=== PATIENT | male | born 1970 | race Caucasian/White ===

== ENCOUNTER 2017-01-12 10:29 | Inpatient (IN) | payer OTHER, SELFPAY ==
[2017-01-12] MEDS ORDERED: Lorazepam 2 MG/ML VIAL ONE ×3 (11:54→15:28)
[2017-01-12] MEDS ORDERED: Ketorolac Tromethamine 30 MG/ML VIAL ONE (11:54)
[2017-01-12 12:00] LABS: ALT (SGPT) 199 U/L (8-55); AST (SGOT) 299 U/L (5-34); Acetaminophen Less than 6.0 mcg/mL (10.0-30.0); Alkaline Phosphatase 77 U/L (40-150); Anion Gap 17 mmol/L (10-20); BUN (Urea Nitrogen) Less than 4 mg/dL (8.9-20.6); CK (CPK) 82 U/L (30-200); Calc. Creatinine Clearance 0 mL/min (70-130); Calcium 9.2 mg/dL (7.8-10.44); Carbon Dioxide 27 mmol/L (22-29); Chloride 97 mmol/L (98-107); Estimated GFR-MDRD Greater than 90; Protein, Total 7.5 g/dL (6.0-8.3); Salicylate Less than 8.0 mg/dL (15.0-30.0)
[2017-01-12] MEDS ORDERED: Multivitamins, Adult 10 ML, Thiamine HCl 100 MG, Folic Acid 1 MG in Dextrose 5 %-0.45 %... IV SCH ×4 (12:00)
[2017-01-12 12:10] LABS: #Basophils 0.1 thou/uL (0.0-0.2); #Lymphocytes 0.7 thou/uL (1.20-3.40); #Monocytes 0.3 thou/uL (0.11-0.59); #Neutrophils 1.7 thou/uL (1.40-6.50); %Basophils 2.8 % (0.0-1.0); %Eosinophils 1.4 % (0.0-10.0); %Lymphocytes 25.5 % (21.0-51.0); Band 2 % (5-11); Hematocrit 45.9 % (42.0-52.0); Macrocytosis SLIGHT = 6-15 cells (100X) (0-5/hpf); Mean Platelet Volume 8.1 fL (7.4-10.4); Neutrophil 58 % (42-75); Reactive Lymphocytes 6 % (0-10); Red Blood Cell (RBC) Count 4.47 mill/uL (4.70-6.10); White Blood Cell (WBC) Count 2.9 thou/uL (4.8-10.8)
[2017-01-12 15:35] LABS: PTT 25.8 SEC (22.9-36.1); Prothrombin Time 11.9 SEC (12.0-14.7)
[2017-01-12] MEDS ORDERED: Ondansetron ODT 4 MG TAB PO PRN (16:15)
[2017-01-12] MEDS ORDERED: Lorazepam 2 MG/ML VIAL SLOW IVP PRN (16:34)
[2017-01-12] MEDS ORDERED: Diazepam 5 MG TAB PO PRN (16:44)
[2017-01-12] MEDS ORDERED: Ibuprofen 800 MG TAB PO PRN (16:45)
[2017-01-12] MEDS ORDERED: Thiamine HCl 200 MG/2 ML VIAL IM SCH (16:45)
[2017-01-12] MEDS ORDERED: Diazepam 5 MG TAB PO SCH ×2 (16:45)
[2017-01-12] MEDS ORDERED: Magnesium Oxide 400 MG TAB PO SCH (17:00)
[2017-01-12 17:20] LABS: Magnesium 1.9 mg/dL (1.6-2.6); Phosphorus 2.2 mg/dL (2.3-4.7)
[2017-01-12] MEDS ORDERED: Lorazepam 2 MG/ML VIAL SLOW IVP SCH (18:45)
[2017-01-12 19:34] LABS: Amphetamine Not Detected (NotDetected); Methadone Not Detected (NotDetected); Methamphetamine Not Detected (NotDetected)
--- NOTE | 2017-01-12 19:38 | ULT ---
RIGHT UPPER QUADRANT ULTRASOUND: 01/12/2017 HISTORY: Elevated transaminases. FINDINGS: The liver demonstrates increased echogenicity suggesting diffuse fatty infiltration. The liver is en larged in craniocaudal dimensions measuring 19 cm. The majority of the pancreas is obscured by bowel gas. Limited visualized portions of the head of th e pancreas has a grossly normal sonographic appearance. The visualized portions of the IVC, gallbladder, and right kidney demonstrate a normal sonographic ap pearance. The right kidney measures 12.3 cm in length. The common duct measures 0.5 cm in diameter which is within normal limits. IMPRESSION: 1. Hepatomegaly with diffuse fatty infiltration of the liver. 2. No gallbladder calculi are seen, and the common duct is normal in caliber. POS: JOSE
[2017-01-12] MEDS ORDERED: FLU VACC QS2017-18 36 mo. & older 0.5 ML SYRINGE IM ONE (21:00)
[2017-01-12] MEDS: Famotidine 20 MG TAB PO SCH (21:05)
[2017-01-12] MEDS: Sodium Chloride 0.9% 1,000 ML IV SCH (23:11)
[2017-01-13] MEDS: Diazepam 5 MG TAB PO PRN ×2 (02:34→06:35)
[2017-01-13] MEDS: Lorazepam 2 MG/ML VIAL SLOW IVP PRN ×4 (05:05→20:17)
[2017-01-13 05:41] LABS: #Basophils 0.1 thou/uL (0.0-0.2); #Lymphocytes 0.5 thou/uL (1.20-3.40); #Monocytes 0.3 thou/uL (0.11-0.59); #Neutrophils 3.4 thou/uL (1.40-6.50); %Basophils 1.6 % (0.0-1.0); %Eosinophils 0.6 % (0.0-10.0); %Lymphocytes 11.6 % (21.0-51.0); %Monocytes 7.1 % (0.0-10.0); Hematocrit 40.3 % (42.0-52.0); Mean Platelet Volume 8.1 fL (7.4-10.4); Red Blood Cell (RBC) Count 3.93 mill/uL (4.70-6.10); White Blood Cell (WBC) Count 4.2 thou/uL (4.8-10.8)
--- NOTE | 2017-01-13 06:00 | HP-2 ---
CODE STATUS: FULL. PRIMARY CARE PHYSICIAN: Trena moctezuma. ATTENDING: Polina Montgomery M.D. RESIDENT: Luna Godfrey D.O. HISTORIAN: Patient. CHIEF COMPLAINT: Alcohol withdrawal shakes. HISTORY OF PRESENT ILLNESS: A 46-year-old male with past medical history of alcoholism presents to [facility] ED seeking help for withdrawal symptoms. His last drink was a beer this morning. He states he ceron s been trying to decrease his intake over the last 2 weeks. Normally, he drinks 5 to 12 beers/glasse s of wine per day since about 22 years of age. He reports he quit years ago for greater than 1 month with "DT pills." He has been to rehab once but states it did not help; in fact, "it hurt my psyche" per patient. He has no history of seizures and denies hallucinations at this time. States he has n ot been eating and due to his feeling poor, wanted to come in and prompted him to quit drinking. In the ER, he was given a banana bag, Toradol IV, lorazepam 1 mg x2 and normal saline 1 liter bolus. PAST MEDICAL HISTORY: None. PAST SURGICAL HISTORY: Fifth digit surgery x2. ALLERGIES: PENICILLIN. MEDICATIONS: None. FAMILY HISTORY: Father with alcoholism. SOCIAL HISTORY: Tobacco one can per day. Alcohol 5 to 12 glasses of beer or wine per day. Drugs po sitive , admits to marijuana use. 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 REVIEW OF SYSTEMS: General: Subjective fever, decreased appetite, decreased weight over the last fe w months, sweats and generalized pain, head to toe. Eyes: Reports blurred vision. ENT: Denies josie al congestion, rhinorrhea, or sore throat. Respiratory: Denies cough, congestion, shortness of hoa th. Cardiovascular: Denies chest pain. Admits to palpitations on occasion. Gastrointestinal: Adm its to nausea, no vomiting or diarrhea. No abdominal pain. Genitourinary: No problems with urinati on. Skin: No rashes, lesions or jaundice. Musculoskeletal: Reports generalized pain. No other te nderness, stiffness, or swelling. Neurologic: Denies syncope or seizure. Psychiatric: Reports anx iety, no depression. PHYSICAL EXAMINATION: VITAL SIGNS: Blood pressure 155/106, pulse 106, respiratory rate 20, T-max 97.5, pulse ox 98% on deidre m air, current weight 68.95 kilograms. GENERAL: Alert and oriented x4, is thin and appropriately interactive, very tremulous, flushed and a nxious appearing. EYES: No scleral icterus. PERRLA, EOMI with mild horizontal nystagmus. ENT: Nasal mucosa within normal limits. Oropharynx within normal limits. NECK: Supple, without lymphadenopathy, no JVD. CARDIOVASCULAR: Tachycardic with regular rhythm. No murmurs. Radial pulses 2+. RESPIRATORY: Normal effort, no retractions. Clear to auscultation bilaterally. SKIN: Warm and sweaty with no lesions. ABDOMEN: Soft, nontender with bowel sounds present. Liver edge progressed 2-3 cm below the costal m argin. No splenomegaly. EXTREMITIES: No clubbing, cyanosis or edema. No palmar erythema. MUSCULOSKELETAL: Structure within normal limits. Tone within normal limits. NEUROLOGIC: No focal deficits. PSYCHIATRIC: Appears anxious. LABORATORY DATA: 1. CBC, white blood cell count 2.9, hemoglobin 15.7, hematocrit 35.9, platelets 62. 2. Sodium 137, potassium 3.7, chloride 97, CO2 of 27, BUN less than 4, creatinine 0.7, glucose 100, calcium 9.2, total protein 7.5, albumin 4.5, AST 299, ALT 199, alkaline phosphatase 77, total bilirub in 1.0. 3. CK 82, CK-MB 0.8. Troponin 0.020. 4. UDS is pending. Acetaminophen less than 6. Salicylate is less than 8. Alcohol 360. 5. EKG, sinus tach with no ST changes. 6. Chest x-ray within normal limits. ASSESSMENT AND PLAN: 1. Acute alcohol withdrawal. CIWA score is 18 plus. We will start scheduled Valium with p.r.nDayron Atcharli van and monitor scores closely, give IV fluids and seizure precautions. Consult case managemen cari haque q. day, q. 4 hours vital signs and scores. 2. Thrombocytopenia, likely secondary to alcoholism, we will not give anticoagulants. 3. Leukocytosis, likely secondary to alcoholism. We will repeat CBC tomorrow. 4. Alcoholic hepatitis versus cirrhosis. We will check hepatitis panel and consider right upper carlos alberto drant ultrasound to rule out early cirrhosis. We will avoid hepatotoxic drugs and monitor for of benzos. 5. Macrocytosis. We will check B12 and folate, give daily multivitamins. 6. Alcohol intoxications, IV fluids and symptomatic treatment. 7. Desiring alcohol cessation. We will consult case management. 8. Tobacco abuse. 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 9. Marijuana abuse. We will check UDS and summer camp counselor for cessation.
[2017-01-13] MEDS: Multivitamins, Adult 10 ML, Folic Acid 1 MG, Thiamine HCl 100 MG in Dextrose 5 %-0.45 %... IV SCH ×4 (06:13)
[2017-01-13 06:23] LABS: ALT (SGPT) 141 U/L (8-55); AST (SGOT) 175 U/L (5-34); Alkaline Phosphatase 69 U/L (40-150); Anion Gap 13 mmol/L (10-20); BUN (Urea Nitrogen) 5 mg/dL (8.9-20.6); Bilirubin, Total 1.6 mg/dL (0.2-1.2); Calc. Creatinine Clearance 137 mL/min (70-130); Calcium 8.6 mg/dL (7.8-10.44); Carbon Dioxide 24 mmol/L (22-29); Chloride 100 mmol/L (98-107); Estimated GFR-MDRD Greater than 90; Globulin 2.5 g/dL (2.4-3.5); Magnesium 1.8 mg/dL (1.6-2.6); Phosphorus 3.2 mg/dL (2.3-4.7); Protein, Total 6.4 g/dL (6.0-8.3)
--- NOTE | 2017-01-13 06:48 | PDOC.FM ---
- Subjective Subjective: Pt tremulous this morning but denied nausea and vomiting. Stated he has some difficulty with walking. - Objective MAR Reviewed: Yes Vital Signs & Weight: Vital Signs (12 hours) Temp Pulse Resp BP BP BP Pulse Ox 01/13/17 04:00 97.6 F 99 18 150/95 H 150/95 H 97 01/13/17 00:00 97.4 F L 100 20 133/83 133/83 98 01/12/17 21:00 99.6 F 113 H 18 137/87 01/12/17 19:40 99.6 F 113 H 18 137/87 97 Weight Weight 68.634 kg I&O: 01/11/17 01/12/17 01/13/17 06:59 06:59 06:59 Intake Total 1705 Balance 1705 Result Diagrams: 01/13/17 05:10 01/13/17 05:10 <Bree Pelletier - Last Filed: 01/13/17 09:35> - Objective Vital Signs & Weight: Vital Signs (12 hours) Temp Pulse Resp BP Pulse Ox 01/13/17 15:20 97.6 F 92 16 154/87 H 100 01/13/17 12:15 98.5 F 91 18 151/94 H 99 Weight Admit Weight 67.948 kg Weight 68.634 kg I&O: 01/12/17 01/13/17 01/14/17 06:59 06:59 06:59 Intake Total 1705 1783 Balance 1705 1783 Result Diagrams: 01/13/17 05:10 01/13/17 05:10 <Peter Nicole - Last Filed: 01/13/17 21:43> Phys Exam - Physical Examination Respiratory: no wheezing, no rales, clear to auscultation bilateral decreased breath sounds on the right Cardiovascular: RRR, no significant murmur Gastrointestinal: soft, non-tender, no distention, positive bowel sounds Musculoskeletal: no edema tremulousness Psychiatric: normal affect, A&O x 3 <Bree Pelletier - Last Filed: 01/13/17 09:35> Dx/Plan (1) Alcohol withdrawal Code(s): F10.239 - ALCOHOL DEPENDENCE WITH WITHDRAWAL, UNSPECIFIED Status: Chronic (2) Fatty liver, alcoholic Code(s): K70.0 - ALCOHOLIC FATTY LIVER Status: Chronic (3) Thrombocytopenia Code(s): D69.6 - THROMBOCYTOPENIA, UNSPECIFIED Status: Acute (4) Leukopenia Code(s): D72.819 - DECREASED WHITE BLOOD CELL COUNT, UNSPECIFIED Status: Acute (5) Polysubstance abuse Code(s): F19.10 - OTHER PSYCHOACTIVE SUBSTANCE ABUSE, UNCOMPLICATED Status: Chronic - Plan Plan: 46 yo male presents with alcohol withdrawal, admitted for withdrawal, placed on ASE and CIWA protocol. 1.)Alcohol Withdrawal, on ASE protocol. -CIWA score:8 -Will schedule taper based on CIWA and ASE protocol results and amount of prn Valium pt needed overnight -Required 20 of valium over 24 hours and 11 of ativan -Will start a librium taper of 50mg q6hrs -Taper recommendation: Librium Day 1 - 50 mg every 6 to 12 hours Day 2 - 25 mg every 6 hours Day 3 - 25 mg twice a day Day 4 - 25 mg at night 2.)Hepatitis-2/2 alcohol -will monitor 3.)Thrombocytopenia, downtrending -will monitor -no s/s of bleeding 4.)Leukopenia, improved from yesterday -will continue to monitor 5.)Polysubstance abuse-will [place] <Bree Pelletier - Last Filed: 01/13/17 09:35> Attending Addendum - Attending Addendum I personally evaluated the patient and discussed the management with Dr. Bell and Dr. Godfrey. I agree with the History, Examination, Assessment and Plan documented above with any addition or exceptions noted below. He fells much better. Slight tremor on exam. Not interested at all in inpatient or outpatient alcohol/drug rehab. Believes with work, good diet and exercise he can kick alcohol on his own. Wants some pills to take indefinitely. 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 Prognosis is high for relapse. Continue librium taper and continue the dialogue. [facility] <Peter Nicole - Last Filed: 01/13/17 21:43>
[2017-01-13] MEDS: Sodium Chloride 0.9% 1,000 ML IV SCH ×2 (07:35→14:38)
[2017-01-13] MEDS ORDERED: Folic Acid 1 MG TAB PO SCH (09:00)
[2017-01-13] MEDS ORDERED: Multivitamin W/ Minerals 1 TAB PO SCH (09:00)
[2017-01-13] MEDS: Famotidine 20 MG TAB PO SCH ×2 (10:35→20:18)
[2017-01-13] MEDS: Magnesium Oxide 400 MG TAB PO SCH (10:35)
[2017-01-13] MEDS: chlordiazePOXIDE HCl 25 MG CAP PO SCH ×2 (14:35→20:17)
[2017-01-14] MEDS: Sodium Chloride 0.9% 1,000 ML IV SCH ×4 (00:41→23:36)
[2017-01-14] MEDS: Lorazepam 2 MG/ML VIAL SLOW IVP PRN ×5 (00:42→20:23)
[2017-01-14 05:22] LABS: #Eosinphils 0.1 thou/uL (0.0-0.7); #Lymphocytes 0.7 thou/uL (1.20-3.40); #Monocytes 0.4 thou/uL (0.11-0.59); #Neutrophils 2.8 thou/uL (1.40-6.50); %Basophils 1.1 % (0.0-1.0); %Eosinophils 3.3 % (0.0-10.0); %Lymphocytes 17.5 % (21.0-51.0); %Monocytes 8.7 % (0.0-10.0); Mean Platelet Volume 8.8 fL (7.4-10.4)
[2017-01-14 05:27] LABS: ALT (SGPT) 113 U/L (8-55); AST (SGOT) 109 U/L (5-34); Alkaline Phosphatase 74 U/L (40-150); Anion Gap 11 mmol/L (10-20); BUN (Urea Nitrogen) 5 mg/dL (8.9-20.6); Bilirubin, Total 1.5 mg/dL (0.2-1.2); Calc. Creatinine Clearance 138 mL/min (70-130); Calcium 8.7 mg/dL (7.8-10.44); Carbon Dioxide 23 mmol/L (22-29); Chloride 105 mmol/L (98-107); Estimated GFR-MDRD Greater than 90; Globulin 2.4 g/dL (2.4-3.5); Magnesium 1.9 mg/dL (1.6-2.6); Phosphorus 3.2 mg/dL (2.3-4.7); Protein, Total 6.2 g/dL (6.0-8.3)
[2017-01-14] MEDS: Multivitamins, Adult 10 ML, Folic Acid 1 MG, Thiamine HCl 100 MG in Dextrose 5 %-0.45 %... IV SCH ×4 (05:59)
[2017-01-14 07:32] LABS: Hepatitis A Total ABS Negative (Negative)
[2017-01-14] MEDS: Famotidine 20 MG TAB PO SCH ×2 (09:18→20:22)
[2017-01-14] MEDS: Potassium Chloride 20 MEQ TAB PO SCH (09:19)
[2017-01-14] MEDS: chlordiazePOXIDE HCl 25 MG CAP PO SCH ×2 (09:19→20:22)
[2017-01-14] MEDS: Magnesium Oxide 400 MG TAB PO SCH (09:19)
[2017-01-14] MEDS: Lisinopril 10 MG TAB PO SCH (09:20)
--- NOTE | 2017-01-14 13:27 | ADD-PRG ---
DATE OF SERVICE: 01/14/2017 This is an addendum to the note of Dr. Bree Bell. Mr. Hamlin is a pleasant 46-year-old white male who drinks heavily and has so since the age of 22. Eitan arroyo was admitted with early alcohol withdrawal and has responded well to ASE protocol. This morning he is awake, alert, in no distress. He is not tremulous. He is not shaky. We had a long discussion a bout his alcoholism and the manifestations therein given that he now has fatty liver and bone marrow suppression. He refuses to go to AA or consider further inpatient counseling. He says he has "frien ds who can help me." He will be discharged home on a Librium taper as well as nutritional instructio n.
--- NOTE | 2017-01-14 14:55 | PDOC.FM ---
- Subjective Subjective: Pt with no acute events overnight. States he slept well and is tolerating a normal diet. Less tremulous this am. Planning to walk around the hospital today. - Objective MAR Reviewed: Yes Vital Signs & Weight: Vital Signs (12 hours) Temp Pulse Resp BP BP BP Pulse Ox 01/14/17 11:42 97.7 F 77 16 149/89 H 99 01/14/17 09:25 97.7 F 78 16 99 01/14/17 09:20 136/95 H 01/14/17 09:15 136/95 H 01/14/17 09:13 97.7 F 78 16 136/95 H 99 01/14/17 04:25 98.5 F 93 18 133/90 133/90 97 Weight Admit Weight 67.948 kg Weight 69.082 kg I&O: 01/13/17 01/14/17 01/15/17 06:59 06:59 06:59 Intake Total 1705 1783 Balance 1705 1783 Result Diagrams: 01/14/17 04:43 01/14/17 04:43 Phys Exam - Physical Examination Constitutional: NAD HEENT: PERRLA, moist MMs Respiratory: no wheezing, no rales, no rhonchi, clear to auscultation bilateral Cardiovascular: RRR, no significant murmur, no rub Gastrointestinal: soft, non-tender, no distention, positive bowel sounds Musculoskeletal: no edema, pulses present Neurological: non-focal Psychiatric: normal affect, A&O x 3 Skin: no rash Dx/Plan (1) Alcohol withdrawal Code(s): F10.239 - ALCOHOL DEPENDENCE WITH WITHDRAWAL, UNSPECIFIED Status: Chronic (2) Fatty liver, alcoholic Code(s): K70.0 - ALCOHOLIC FATTY LIVER Status: Chronic (3) Thrombocytopenia Code(s): D69.6 - THROMBOCYTOPENIA, UNSPECIFIED Status: Acute (4) Leukopenia Code(s): D72.819 - DECREASED WHITE BLOOD CELL COUNT, UNSPECIFIED Status: Acute (5) Polysubstance abuse Code(s): F19.10 - OTHER PSYCHOACTIVE SUBSTANCE ABUSE, UNCOMPLICATED Status: Chronic - Plan Plan: 46 yo male presents with alcohol withdrawal, admitted for withdrawal, placed on ASE and CIWA protocol. 1.)Alcohol Withdrawal, on ASE protocol. -CIWA score:7 -librium taper of 50mg q12hrs -Taper recommendation: Librium Day 1 - 50 mg every 6 to 12 hours Day 2 - 25 mg every 6 hours Day 3 - 25 mg twice a day Day 4 - 25 mg at night 2.)Fatty liver disease 2/2 alcohol consumption -Liver enzymes downtrending -will monitor 3.)Thrombocytopenia, downtrending, 2/2 bone marrow suppression from alcohol abuse -will monitor -no s/s of bleeding 4.)Leukopenia, improved from yesterday, 2/2 bone marrow suppression from alcohol abuse -will continue to monitor 5.)Polysubstance abuse-will [facility] [facility]
[2017-01-15 04:55] LABS: #Eosinphils 0.2 thou/uL (0.0-0.7); #Lymphocytes 0.7 thou/uL (1.20-3.40); #Monocytes 0.5 thou/uL (0.11-0.59); #Neutrophils 2.4 thou/uL (1.40-6.50); %Basophils 1.2 % (0.0-1.0); %Eosinophils 4.5 % (0.0-10.0); %Monocytes 13.1 % (0.0-10.0); Hematocrit 39.2 % (42.0-52.0); Mean Platelet Volume 8.5 fL (7.4-10.4); Red Blood Cell (RBC) Count 3.82 mill/uL (4.70-6.10); White Blood Cell (WBC) Count 3.8 thou/uL (4.8-10.8)
[2017-01-15] MEDS: Multivitamins, Adult 10 ML, Folic Acid 1 MG, Thiamine HCl 100 MG in Dextrose 5 %-0.45 %... IV SCH ×4 (05:04)
[2017-01-15 05:05] LABS: ALT (SGPT) 105 U/L (8-55); AST (SGOT) 96 U/L (5-34); Alkaline Phosphatase 61 U/L (40-150); Anion Gap 10 mmol/L (10-20); BUN (Urea Nitrogen) 6 mg/dL (8.9-20.6); Bilirubin, Total 1.1 mg/dL (0.2-1.2); Calc. Creatinine Clearance 140 mL/min (70-130); Calcium 8.5 mg/dL (7.8-10.44); Carbon Dioxide 22 mmol/L (22-29); Chloride 107 mmol/L (98-107); Estimated GFR-MDRD Greater than 90; Globulin 2.3 g/dL (2.4-3.5); Phosphorus 3.4 mg/dL (2.3-4.7); Protein, Total 5.9 g/dL (6.0-8.3)
[2017-01-15] MEDS: Sodium Chloride 0.9% 1,000 ML IV SCH (05:22)
[2017-01-15] MEDS: Lorazepam 2 MG/ML VIAL SLOW IVP PRN ×2 (07:19→11:23)
[2017-01-15] MEDS: Famotidine 20 MG TAB PO SCH (08:48)
[2017-01-15] MEDS: Potassium Chloride 20 MEQ TAB PO SCH (08:48)
[2017-01-15] MEDS: Lisinopril 10 MG TAB PO SCH (08:48)
[2017-01-15] MEDS: chlordiazePOXIDE HCl 25 MG CAP PO SCH (08:49)
[2017-01-15] MEDS ORDERED: Folic Acid 1 MG TAB PO SCH (09:00)
[2017-01-15] MEDS ORDERED: Multivit, Therapeutic 1 TAB PO SCH (09:00)
[2017-01-15] MEDS: Magnesium Oxide 400 MG TAB PO SCH (10:00)
[2017-01-15 12:04] VITALS: BP 158/99; TEMP 97.8
[2017-01-15 12:28] VITALS: BMI 21.9
--- NOTE | 2017-01-15 12:42 | PDOC.FM ---
- Subjective Subjective: No acute events overnight. Pt denies n/v/anxiety/agitation. Endorses mild tremulousness. - Objective MAR Reviewed: Yes Vital Signs & Weight: Vital Signs (12 hours) Temp Pulse Resp BP BP BP Pulse Ox 01/15/17 12:00 158/99 H 01/15/17 11:20 97.8 F 83 18 158/99 H 98 01/15/17 08:48 138/96 H 01/15/17 08:00 97.9 F 138 H 21 H 138/96 H 138/96 H 98 01/15/17 04:00 97.8 F 81 20 124/83 124/83 97 Weight Admit Weight 67.948 kg Weight 67.449 kg I&O: 01/14/17 01/15/17 01/16/17 06:59 06:59 06:59 Intake Total 1783 5440 Output Total 400 Balance 1783 5040 Result Diagrams: 01/15/17 04:33 01/15/17 04:33 Phys Exam - Physical Examination Constitutional: NAD HEENT: PERRLA, moist MMs Respiratory: no wheezing, no rales, no rhonchi, clear to auscultation bilateral Cardiovascular: RRR, no significant murmur, no rub Gastrointestinal: soft, non-tender, no distention, positive bowel sounds Musculoskeletal: no edema, pulses present Neurological: non-focal, moves all 4 limbs mild tremors Psychiatric: normal affect, A&O x 3 Skin: no rash Dx/Plan (1) Alcohol withdrawal Code(s): F10.239 - ALCOHOL DEPENDENCE WITH WITHDRAWAL, UNSPECIFIED Status: Chronic (2) Fatty liver, alcoholic Code(s): K70.0 - ALCOHOLIC FATTY LIVER Status: Chronic (3) Thrombocytopenia Code(s): D69.6 - THROMBOCYTOPENIA, UNSPECIFIED Status: Acute (4) Leukopenia Code(s): D72.819 - DECREASED WHITE BLOOD CELL COUNT, UNSPECIFIED Status: Acute (5) Polysubstance abuse Code(s): F19.10 - OTHER PSYCHOACTIVE SUBSTANCE ABUSE, UNCOMPLICATED Status: Chronic - Plan Plan: 46 yo male presents with alcohol withdrawal, admitted for withdrawal, placed on ASE and CIWA protocol. 1.)Alcohol Withdrawal, on ASE protocol. -Taper recommendation: Librium Day 1 - 50 mg every 6 to 12 hours Day 2 - 25 mg every 6 hours Day 3 - 25 mg twice a day Day 4 - 25 mg at night 2.)Fatty liver disease 2/2 alcohol consumption -Liver enzymes downtrending -will monitor 3.)Thrombocytopenia, downtrending, 2/2 bone marrow suppression from alcohol abuse -will monitor -no s/s of bleeding 4.)Leukopenia, improved from yesterday, 2/2 bone marrow suppression from alcohol abuse -will continue to monitor 5.)Polysubstance abuse-will [place] Dispo: discharge today
[2017-01-15 13:18] LABS: Hep B Surface AG-Rflx Sendout Negative (Negative); Hepatitis B Core Total Negative (Negative); Hepatitis B Surface AB-Sendout Non Reactive (.); Hepatitis B little e Antibody Negative (Negative); Hepatitis B little e Antigen Negative (Negative)
--- NOTE | 2017-01-15 20:52 | ADD-PRG ---
DATE OF SERVICE: 01/15/2017 This is an addendum to the note of Dr. Bree Bell. Mr. Hamlin looks and feels much better this morning. He is still a little "shaky." However, we will be able to discharge him on a Librium taper with instructions to take an extra dose should he become more shaky or agitated. We again had a talk about the absolute necessity for his alcoholic cessatio n.
== END 2017-01-15 15:12 | disposition home or self-care (01) | DRG 897 ==
LOC: ERS 10:29 → T4-A 14:50 → 2NO 19:21
PROVIDERS: ADMIT Family Medicine; ATTEND Family Medicine
DX: F10.239 Alcohol dependence with withdrawal, unspecified (principal); D69.6 Thrombocytopenia, unspecified; K70.10 Alcoholic hepatitis without ascites; Z88.0 Allergy status to penicillin; F17.220 Nicotine dependence, chewing tobacco, uncomplicated; F12.10 Cannabis abuse, uncomplicated; D75.89 Other specified diseases of blood and blood-forming organs; K70.0 Alcoholic fatty liver; D72.819 Decreased white blood cell count, unspecified
CPT/HCPCS: 36415; 76705; 80053; 80306; 80307; 82553; 82607; 82746; 83690; 83735; 84100; 84484; 85025; 85060; 85610; 85730; 86480; 86704; 86705; 86706; 86707; 86709; 86780; 86803; 87340; 87350; 87389; 90471; 90732; 93005; A4216; G0009; J1885; J2060; J3411; J3475; J7042; J7050

== ENCOUNTER 2017-03-20 11:33 | Emergency (ER) | payer SELFPAY ==
[2017-03-20 12:47] LABS: Band 3 % (5-11); Eosinophils 3 % (0-10); Hemoglobin 15.1 g/dL (14.0-18.0); Lymphocytes 39 % (21-51); MDiff Complete? YES; Mean Corpuscular HGB CONC 34.1 g/dL (32.0-36.0); Mean Corpuscular Hemoglobin 34.8 pg (27.0-31.0); Mean Platelet Volume 7.7 fL (7.4-10.4); Monocytes 8 % (0-10); Neutrophil 43 % (42-75); PLT Morphology Comment Appears Decreased; Platelet Count 86 thou/uL (130-400); RBC Distribution Width 11.7 % (11.5-14.5); RBC Morphology Normal; Reactive Lymphocytes 2 % (0-10); Red Blood Cell (RBC) Count 4.35 mill/uL (4.70-6.10); White Blood Cell (WBC) Count 2.6 thou/uL (4.8-10.8)
[2017-03-20 12:50] LABS: Acetaminophen Less than 6.0 mcg/mL (10.0-30.0); Alcohol 358 mg/dL (Less than 10); Salicylate Less than 8.0 mg/dL (15.0-30.0)
[2017-03-20 13:07] LABS: ALT (SGPT) 148 U/L (8-55); AST (SGOT) 225 U/L (5-34); Albumin 4.7 g/dL (3.5-5.0); Alcohol 357 mg/dL (Less than 10); Alkaline Phosphatase 74 U/L (40-150); Anion Gap 25 mmol/L (10-20); BUN (Urea Nitrogen) 4 mg/dL (8.9-20.6); Calc. Creatinine Clearance 0 mL/min (70-130); Calcium 8.9 mg/dL (7.8-10.44); Carbon Dioxide 19 mmol/L (22-29); Chloride 95 mmol/L (98-107); Estimated GFR-MDRD Greater than 90; Glucose 85 mg/dL (70-105); Lipase 19 U/L (8-78); Magnesium 2.4 mg/dL (1.6-2.6); Potassium 4.5 mmol/L (3.5-5.1); Protein, Total 7.7 g/dL (6.0-8.3); Sodium 134 mmol/L (136-145)
[2017-03-20] MEDS ORDERED: Ketorolac Tromethamine 30 MG/ML VIAL ONE ×2 (14:50→18:21)
[2017-03-20] MEDS ORDERED: chlordiazePOXIDE HCl 25 MG CAP ONE (17:00)
[2017-03-20] MEDS ORDERED: Multivitamins, Adult 10 ML, Thiamine HCl 100 MG, Folic Acid 1 MG in Dextrose 5 %-0.45 %... IV ONE ×4 (17:45)
== END 2017-03-20 19:42 | disposition home or self-care (01) ==
LOC: ERS 11:33
DX: F10.129 Alcohol abuse with intoxication, unspecified (principal); E86.0 Dehydration; I10 Essential (primary) hypertension; F41.9 Anxiety disorder, unspecified; F32.9 Major depressive disorder, single episode, unspecified; F17.220 Nicotine dependence, chewing tobacco, uncomplicated; Z71.6 Tobacco abuse counseling
CPT/HCPCS: 80053; 80307; 83690; 83735; 85025; 96361; 96374; 96376; 99406; J1885; J3411; J7042